=== PATIENT | male | born 1970 | race Caucasian/White ===

== ENCOUNTER 2017-01-16 09:28 | Emergency (ER) | payer OTHER ==
[~2017-01-16] VITALS: Ht 185.4 cm; Wt 104.3 kg
--- NOTE | ~2017-01-16 | CR210 ---
[facility] A Service of [facility] & [facility] & [facility] RADIOLOGY TEXT RESULTS PATIENT: DB SAMUELS LOCATION: CFTX : 74 UNIT #: [id number] AGE: [address]: Nadia Murray SEX: M ORDER DR: [id number] [facility] [address] [place], [place] [address] [id number] MR#: [id number] Acc #: [id number] NAME: DB SAMUELS : 1970 SEX: M STUDY DATE/TIME: 01/16/2017 10:15 UNIT: [facility] ROOM: STUDY DESCRIPTION: CR Ribs Uni 2 View W PA Ch Lt Attending Physician: Nadia Murray P.A.-C. Ordering Physician: Nadia Murray P.A.-C. Primary Care Physician: Primary Care Physician No MEDICAL IMAGING REPORT This report is preliminary unless electronic signature is present EXAM Chest and left ribs 4 views, 01/16/2017 HISTORY Left mid frontal chest and rib pain for 3 days, cough and chest congestion. Patient felt a pop in the left ribs with pain after coughing 3 days ago which has persisted. FINDINGS The heart is normal in size. The lungs are clear. There are no pleural effusions. Images of the left ribs demonstrate no fracture. There is no pneumothorax. IMPRESSION Negative PA chest and left ribs. Dictated by... Fadi Mix M.D. THIS IS AN ELECTRONICALLY VERIFIED REPORT Fadi Mix M.D. at 01/17/2017 10:34 AM RENATE/irene TD: 01/16/2017 10:42 JOB #: [id number] MEDICAL IMAGING REPORT Page 1 of 1 COPY
--- NOTE | ~2017-01-16 | EKG ---
PATIENT: DB SAMUELS UNIT #: [id number] Ventricular Rate: 51 BPM Atrial Rate: 51 BPM P-R Interval: 160 ms QRS Duration: 88 ms Q-T Interval: 402 ms QTC Calculation(Bezet): 370 ms P [place]: 24 degrees Calculated R [place]: 31 degrees Calculated T [place]: 21 degrees Diagnosis Line: Sinus bradycardia Diagnosis Line: Otherwise normal ECG Diagnosis Line: No previous ECGs available Diagnosis Line: Confirmed by CRYSTAL WHITAKER MD ([id number]) on 01/16/2017 Diagnosis Line: 2:07:36 PM INTERPRETING MD: JULIANNE WETZEL
[~2017-01-16 09:28] MED LIST: LORTAB 5/500 TA1 TA1 PO; SILVADENE TOP
== END 2017-01-16 10:54 | disposition home or self-care (01) ==
LOC: CFTX 09:28 → CED 09:28 → CFTX 10:42
DX: S29.011A Strain of muscle and tendon of front wall of thorax, initial encounter (principal); R00.1 Bradycardia, unspecified; X58.XXXA Exposure to other specified factors, initial encounter; Y92.9 Unspecified place or not applicable
CPT/HCPCS: 71101; 93005; 99283